=== PATIENT | female | born 1940 | race Caucasian/White ===

== ENCOUNTER 2019-05-11 18:45 | Emergency (ER) | payer MEDICARE, BC ==
[~2019-05-11] VITALS: Ht 157.5 cm; Wt 72.6 kg
[~2019-05-11 18:45] MED LIST: ENALAPRIL MALEA20 MG PO; IRON325; JANUVIA100 MG PO; LOVENOX; NORCO 5-325 TA1 EACH; OXYIR5 MG; VYTORIN 10-401 EACH PO
[2019-05-11] MEDS ORDERED: GLIPIZIDE 10 MG10 MG PO (18:55)
[2019-05-11] MEDS ORDERED: AMLODIPINE BESY10 MG PO (18:55)
[2019-05-11] MEDS ORDERED: CRESTOR20 MG PO (18:55)
[2019-05-11] MEDS ORDERED: ZESTRIL10 MG PO (18:55)
[2019-05-11] MEDS ORDERED: METFORMIN HCL500 M3 PO (18:55)
[2019-05-11] MEDS ORDERED: FARXIGA5 MG PO (18:55)
[2019-05-11] MEDS ORDERED: FENOFIBRATE40 MG PO (18:56)
[2019-05-11] MEDS ORDERED: ASPIRIN EC325 M1 PO (18:56)
[2019-05-11] MEDS ORDERED: FUROSEMIDE 20 M20 MG PO (18:56)
[2019-05-11] MEDS ORDERED: FISH OIL 1,0001 EAC9 PO (18:56)
[2019-05-11] MEDS ORDERED: TRULICITY1.5 MG/0.5 SUBQ (18:57)
[2019-05-11] MEDS ORDERED: MUPIROCIN15 GM TOP (20:45)
[2019-05-11] MEDS ORDERED: KEFLEX500 M1 PO (20:45)
[2019-05-11 21:04] VITALS: BP 148/70
== END 2019-05-11 21:04 | disposition home or self-care (01) ==
LOC: M.ERS 18:45
DX: T25.122A Burn of first degree of left foot, initial encounter (principal); L03.116 Cellulitis of left lower limb; I10 Essential (primary) hypertension; E11.9 Type 2 diabetes mellitus without complications; Z90.49 Acquired absence of other specified parts of digestive tract; T31.0 Burns involving less than 10% of body surface; X11.8XXA Contact with other hot tap-water, initial encounter; Y93.89 Activity, other specified; Y92.89 Other specified places as the place of occurrence of the external cause; Y99.8 Other external cause status